=== PATIENT | female | born 1975 | race Caucasian/White ===

== ENCOUNTER → 2020-04-15 | Day surgery (SDC) | payer OTHER ==
[~2020-04-15] MED LIST: BENTYL10 MG PO; COZAAR50 MG PO; HYDROCHLOROTHIA25 MG PO; KLONOPIN1 MG PO; LEVSIN-SL0.125 MG SL; VITAMIN D325 MC2 PO
[2020-04-15 09:02] LABS: HCT 45.7 % (37.0-47.0); HGB 16.1 g/dl (12.5-16.0); MCH 34.3 pg (25.0-31.0); MCHC 35.2 g/dL (32.0-36.0); MCV 97.2 fL (78.0-100.0); MPV 8.6 fL (6.0-9.5); RBC 4.7 M/uL (4.20-5.40); RDW 12.3 % (11.5-14.0); WBC 5.3 K/uL (4.0-10.5)
[2020-04-15 09:21] LABS: HCG (URINE) SCREEN NEGATIVE (NEGATIVE)
[2020-04-15 09:27] LABS: ALBUMIN 3.6 g/dL (3.4-5.0); BILIRUBIN - TOTAL 0.5 mg/dL (0.2-1.0); CREATININE 0.71 mg/dL (0.51-0.95); GLOBULIN (CALCULATION) 3.4 g/dL
== END | disposition home or self-care (01) ==
LOC: FAS 08:20
PROVIDERS: Anesthesiology; Surgery
DX: K58.0 Irritable bowel syndrome with diarrhea (principal); D17.5 Benign lipomatous neoplasm of intra-abdominal organs; K64.4 Residual hemorrhoidal skin tags; K64.8 Other hemorrhoids; K29.70 Gastritis, unspecified, without bleeding; M19.90 Unspecified osteoarthritis, unspecified site; F17.210 Nicotine dependence, cigarettes, uncomplicated; G47.30 Sleep apnea, unspecified; I10 Essential (primary) hypertension; I48.0 Paroxysmal atrial fibrillation; F41.9 Anxiety disorder, unspecified; K21.9 Gastro-esophageal reflux disease without esophagitis; M06.9 Rheumatoid arthritis, unspecified; G43.909 Migraine, unspecified, not intractable, without status migrainosus; Z79.82 Long term (current) use of aspirin; Z79.899 Other long term (current) drug therapy
CPT/HCPCS: 36415; 76705; 80053; 84703; 88305; J1610; J2250; J2704; J7120

== ENCOUNTER 2020-06-30 09:02 | Emergency (ER) | payer OTHER ==
[~2020-06-30 09:02] MED LIST changes: -BENTYL10 MG PO
[2020-06-30 09:37] LABS: BASOPHIL 0.3 % (0-2); EOSINOPHIL 2.2 % (0-5); HCT 45.4 % (37.0-47.0); HGB 16.6 g/dl (12.5-16.0); MCH 34.7 pg (25.0-31.0); MCHC 36.6 g/dL (32.0-36.0); MONOCYTE 7.4 % (0-12); MPV 8.6 fL (6.0-9.5); NEUTROPHIL 66.8 % (41-80); NRBC 0; PLT 385 K/uL (150-400); RBC 4.78 M/uL (4.20-5.40); RDW 12.1 % (11.5-14.0); WBC 6.4 K/uL (4.0-10.5)
[2020-06-30 09:47] LABS: BILIRUBIN NEGATIVE (NEGATIVE); BLOOD TRACE-INTACT Ery/uL (NEGATIVE); CLARITY CLEAR (CLEAR); COLOR YELLOW (YELLOW); GLUCOSE (U) NORMAL (NORMAL); LEUKOCYTES NEGATIVE Leu/uL (NEGATIVE); NITRITE NEGATIVE (NEGATIVE); PROTEIN NEGATIVE (NEGATIVE); SPECIFIC GRAVITY 1.015 (1.001-1.030); UROBILINOGEN 0.2 mg/dL (0.2-1.0); pH 8.5 (5.0-9.0)
[2020-06-30 09:51] LABS: ALBUMIN 4.4 g/dL (3.4-5.0); BILIRUBIN - TOTAL 0.8 mg/dL (0.2-1.0); BUN/CREAT RATIO (CALC) 9.6 RATIO; CREATININE 0.73 mg/dL (0.51-0.95); GLOBULIN (CALCULATION) 3.3 g/dL; POTASSIUM 3.9 mmol/L (3.5-5.1); TOTAL PROTEIN 7.7 g/dL (6.4-8.2)
[2020-06-30 09:55] LABS: BACTERIA TRACE; URINARY WBC RARE
[2020-06-30 10:01] LABS: LACTIC ACID 2.7 mmol/L (0.4-1.9)
[2020-06-30] MEDS ORDERED: BENTYL10 MG PO (11:42)
== END 2020-06-30 12:03 | disposition home or self-care (01) ==
LOC: FER 09:02
PROVIDERS: Emergency Medicine
DX: R10.9 Unspecified abdominal pain (principal); G89.29 Other chronic pain; R19.7 Diarrhea, unspecified; F17.210 Nicotine dependence, cigarettes, uncomplicated; Z87.19 Personal history of other diseases of the digestive system
CPT/HCPCS: 36415; 80053; 81001; 83605; 83690; 85025; Q9967